=== PATIENT | male | born 1935 | race Caucasian/White ===

== ENCOUNTER 2016-10-27 08:58 | Inpatient (IN) | payer MEDICARE, BC ==
--- NOTE | ~2016-10-27 | DS ---
Discharge Summary [facility] [address] [place]. [address] NAME: OMI HUMPHREY : 37 STATUS : ADM IN PAT#: [id number] AGE: 81 ADM/REG DATE : 10/27/16 MR#: [id number] REPORT SERV DATE: 10/28/16 DICTATED BY: MICHELLE BRADFORD DATE: 10/28/16 REPORT STATUS : Draft TRANSCRIBED BY: IZAIAH DATE: 10/28/16 ADMISSION DATE: 10/23/2016 DISCHARGE DATE: 10/28/2016 CONSULTATION: Cardiology, Dr. Kayden Garvey. PROCEDURE: Left heart catheterization. IMPRESSION: 1. High-grade disease of a relatively large but nondominant circumflex artery. 2. Borderline disease of the mid left anterior descending and posterior left main coronary artery; these lesions were examined by IFR and found to be non hemodynamically significant. 3. Normal left ventricular end-diastolic pressure. RECOMMENDATIONS: This patient has evidence of infarction in the distribution of the circumflex on his recent myocardial perfusion imaging study. It is recommended that a viability study to be performed. Should they show a viable myocardium in the circumflex distribution, consider staged intervention to the proximal circumflex and 1st obtuse marginal branch. If the distribution of the circumflex is infarcted, medical therapy for cardiomyopathy is recommended. ECHOCARDIOGRAM SUMMARY: Overall quality is adequate. Severe left ventricular dysfunction with an ejection fraction of 30%. Left atrial and ventricular cavities are dilated. The right ventricular systolic function appeared preserved. Mild mitral regurgitation. DISCHARGE DIAGNOSES: 1. Acute decompensated heart failure with reduced EF (new onset). 2. Ischemic cardiomyopathy, EF 30%. 3. Hypertension. 4. Diabetes mellitus type 2. 5. Coronary artery disease. 6. Premature ventricular contractions. 7. Obesity. 8. Nocturnal hypoxia concerning for possible obstructive sleep apnea. 9. Acute kidney injury, resolved. Creatinine back to baseline at 1.2. DISCHARGE CONDITION: Stable. HISTORY OF PRESENT ILLNESS: For detailed HPI, please make reference to Dr. Varghese Arteaga's dictation on 10/24/2016. In brief, this is an 81-year-old male with medical history of diabetes mellitus, hypertension, hyperlipidemia, who presented to the emergency room with complaints of worsening shortness of breath of two weeks' duration. Chest x-ray shows pulmonary vascular congestion. BNP, elevated. An assessment of acute decompensated heart failure was made in the ER. The patient was admitted to the hospitalist service at the [facility]. Discharge Summary [address] [address] NAME: OMI HUMPHREY : 37 STATUS : ADM IN PAT#: [id number] AGE: 81 ADM/REG DATE : 10/27/16 MR#: [id number] REPORT SERV DATE: 10/28/16 DICTATED BY: MICHELLE BRADFORD DATE: 10/28/16 REPORT STATUS : Draft TRANSCRIBED BY: MODL DATE: 10/28/16 HOSPITAL COURSE: 1. Acute heart failure with reduced EF (new onset). Given the patient's constellation of symptoms of worsening shortness of breath, bilateral lower extremity swelling, elevated BNP and chest x-ray concerning for pulmonary vascular congestion, an assessment of new- onset heart failure was made. Echocardiogram was obtained, which shows ejection fraction of 30%. Cardiology was consulted. Cardiology recommended to add spironolactone and continue IV diuretics. Of note, the patient is allergic to RADHA inhibitors. Given the patient's significantly reduced EF, Cardiology recommended the patient to undergo a left heart catheterization. The patient was transferred from the [facility] to the [facility]. The patient has had a cardiac catheterization that shows high-grade disease of a relatively large but nondominant circumflex artery, borderline disease of the mid left anterior descending and ostial left coronary artery. These lesions were examined by IFR and found to be non hemodynamically significant. Cardiology recommended the patient to undergo a viability study as an outpatient. Per Cardiology recommendation, the patient's viability study has been scheduled and will be done as an outpatient to show a viable myocardium in the circumflex distribution prior to any staged intervention. Cardiology recommends the patient to continue Coreg 3.25 mg, spironolactone and Lasix as an outpatient. 2. Frequent PVCs. It was noted throughout the course of this admission that the patient has multiple PVCs. The patient's heart rate ranges in the 60s. Cardiology recommends to continue beta-mohini and follow up as an outpatient. At the time of discharge, the patient remains hemodynamically stable. Shortness of breath had completely resolved. No further evidence of lower extremity edema noted. The patient was discharged home in stable condition to follow up with Cardiology as an outpatient. 3. Acute kidney injury. During the course of this patient's admission while on IV diuretics, the patient's creatinine trended up to 1.4. Diuresis was transiently held. The patient's creatinine returned back to baseline of 1.2 prior to discharge. The patient was advised to continue followup with primary care physician. DISCHARGE MEDICATIONS: Spironolactone 25 mg p.o. daily, Lipitor 40 mg p.o. daily, Lasix 20 mg p.o. b.i.d., Coreg 3.125 mg p.o. b.i.d., Tricor 145 mg p.o. daily, Invokana 100 mg p.o. daily. DISCHARGE FOLLOWUP: 1. Follow up with Cardiology within one week of discharge. 2. To have a PET viability cardiac study within one week of discharge. 3. Follow up with primary care physician within one to two weeks of discharge. DISCHARGE ACTIVITY: As tolerated. DISCHARGE DIET: ADA 1800-calorie diet. Greater than 35 minutes were used to prepare this patient's discharge, to reconcile medication, advise the patient on discharge plans and followup. Discharge Summary [facility] [id number] [place]. [address] NAME: OMI HUMPHREY : 37 STATUS : ADM IN [facility]#: [id number] AGE: 81 ADM/REG DATE : 10/27/16 MR#: [id number] REPORT SERV DATE: 10/28/16 DICTATED BY: MICHELLE BRADFORD DATE: 10/28/16 REPORT STATUS : Draft TRANSCRIBED BY: IZAIAH DATE: 10/28/16 LIA/IZAIAH Michelle Bradford MD / [id number] CC: Michelle Bradford MD
--- NOTE | ~2016-10-27 | PUL ---
[facility] [address] [place]. [address] NAME: OMI HUMPHREY : 37 STATUS : DIS IN PAT#: [id number] AGE: 81 ADM/REG DATE : 10/27/16 MR#: [id number] REPORT SERV DATE: 10/28/16 DICTATED BY: MARY HENNESSY DATE: 10/28/16 REPORT STATUS : Draft TRANSCRIBED BY: MODL DATE: 10/28/16 PULMONARY FUNCTION TEST OVERNIGHT OXIMETRY REPORT START DATE OF TESTIN10/27/2016. END DATE OF TESTIN10/28/2016. COMMENTS: Testing was conducted with the patient breathing room air. RESULTS: Total valid sampling time 6 hours 22 minutes and 57 seconds. Total time with an oxygen saturation of less than 88%, 3 minutes and 10 seconds. Oxygen desaturation event index 6.3. IMPRESSION: There was no significant desaturation during this study conducted while the patient was breathing room air. The oxygen desaturation index was elevated suggestive of possible obstructive sleep apnea. Recommend formal sleep study to confirm if clinically indicated. PS/MODL Mary Hennessy M.D. / [id number] CC: MD Karlos Méndez MD
[~2016-10-27 08:58] MED LIST: FOLINIC PLUS PO; INVOKANA100 MG PO; SUDAFED PO; TENORETIC1 TAB PO; TRICOR145 PO
[2016-10-28 06:27] LABS: BASOPHILS 0.3 %; BASOPHILS ABSOLUTE 0.02 10/3/uL (0.0-0.16); EOSINOPHILS 3.2 %; EOSINOPHILS ABSOLUTE 0.19 10/3/uL (0.0-0.53); HEMATOCRIT 46.8 % (40.0-51.0); HEMOGLOBIN 15.3 g/dL (13.6-17.8); IMMATURE GRANULOCYTES 0.3 %; IMMATURE GRANULOCYTES ABSOLUTE 0.02 10/3/uL (0.0-0.11); LYMPHOCYTES 19.8 %; LYMPHOCYTES ABSOLUTE 1.16 10/3/uL (0.67-4.30); MEAN CORPUS HGB CONC 32.7 g/dL (32.0-36.0); MEAN CORPUSCULAR HEMOGLOB 30.5 pg (26.0-34.0); MEAN CORPUSCULAR VOLUME 93.2 fL (80-100); MONOCYTES 8.7 %; MONOCYTES ABSOLUTE 0.51 10/3/uL (0.21-1.20); NEUTROPHILS 67.7 %; NEUTROPHILS ABSOLUTE 3.96 10/3/uL (2.02-8.40); PLATELET COUNT 202 10/3/uL (150-400); RBC DISTRIBUTION WIDTH 13.6 % (12.0-16.0); RED CELL COUNT 5.02 10/6/uL (4.7-6.1); WHITE BLOOD CELLS 5.9 10/3/uL (4.5-10.5)
[2016-10-28 06:29] LABS: MANUAL DIFF NO %
[2016-10-28 06:43] LABS: ALBUMIN 2.8 G/DL (3.5-5.0); CALCIUM, SERUM 8.6 MG/DL (8.5-10.4); CHLORIDE, SERUM 110 MMOL/L (96-112); CREATININE 1.23 MG/DL (0.70-1.30); GFR AFRICAN AMERICAN 64 ML/MIN (>=60); GFR NON AFRICAN AMERICAN 55 ML/MIN (>=60); GLUCOSE, SERUM 104 MG/DL (60-99); PHOSPHORUS, SERUM 2.1 MG/DL (2.5-4.5); POTASSIUM, SERUM 3.9 MMOL/L (3.5-5.3); SODIUM, SERUM 143 MMOL/L (135-148)
[2016-10-28 06:45] LABS: BUN (BLOOD UREA NITROGEN) 32 MG/DL (6-23); CO2 (CARBON DIOXIDE) 24 MMOL/L (24-34)
[2016-10-28] MEDS ORDERED: COREG3 PO (11:18)
[2016-10-28] MEDS ORDERED: LIPITOR40 PO (11:19)
[2016-10-28] MEDS ORDERED: SPIRO25 PO (11:19)
[2016-10-28] MEDS ORDERED: L20 PO (11:20)
[2016-11-17] MEDS ORDERED: ASAB PO (07:01)
[2016-11-17] MEDS ORDERED: PROSCAR5 PO (07:01)
[2016-12-14] MEDS ORDERED: FLEX PO (17:09)
[2016-12-15] MEDS ORDERED: BRILINTA90 MG PO (10:28)
[2016-12-15] MEDS ORDERED: SPIRO25 PO (10:29)
[2016-12-15] MEDS ORDERED: PLAVIX PO (15:38)
[2016-12-15] MEDS ORDERED: NITROSTAT0.4 MG SL (15:38)
== END 2016-10-28 13:36 | disposition home or self-care (01) | DRG 287 ==
LOC: CORLMH 08:58 → SSU1 09:45 → 5NO 19:22
PROVIDERS: Internal Medicine Cardiovascular Disease
PROC: 4A023N7 Measurement of Cardiac Sampling and Pressure, Left Heart, Percutaneous Approach (ICD-10-PCS; principal; 2016-10-27)
PROC: B2111ZZ Fluoroscopy of Multiple Coronary Arteries using Low Osmolar Contrast (ICD-10-PCS; 2016-10-27)
PROC: 4A033BC Measurement of Arterial Pressure, Coronary, Percutaneous Approach (ICD-10-PCS; 2016-10-27)
DX: I11.0 Hypertensive heart disease with heart failure (principal); N17.9 Acute kidney failure, unspecified; I25.10 Atherosclerotic heart disease of native coronary artery without angina pectoris; I50.23 Acute on chronic systolic (congestive) heart failure; E11.9 Type 2 diabetes mellitus without complications; I49.3 Ventricular premature depolarization; I25.5 Ischemic cardiomyopathy; E66.9 Obesity, unspecified; Z68.33 Body mass index [BMI] 33.0-33.9, adult; G47.33 Obstructive sleep apnea (adult) (pediatric); Z88.8 Allergy status to other drugs, medicaments and biological substances; Z87.891 Personal history of nicotine dependence; Z79.84 Long term (current) use of oral hypoglycemic drugs; Z98.890 Other specified postprocedural states; E78.2 Mixed hyperlipidemia; M81.0 Age-related osteoporosis without current pathological fracture; M19.90 Unspecified osteoarthritis, unspecified site
CPT/HCPCS: 71010; 78452; 80048; 80053; 80069; 81001; 82550; 82962; 83036; 83735; 83880; 84132; 84439; 84443; 84484; 85025; 85347; 85610; 85730; 93005; 93017; 93458; 93571; 93572; 94762; 96374; 99152; 99153; 99285; A9270-GY; A9502; C1769; C1887; C1894; J2250; J3010; Q9967